=== PATIENT | female | born 1990 | race Caucasian/White ===

== ENCOUNTER 2025-06-18 09:28 | Emergency (ER) | payer OTHER ==
[~2025-06-18] VITALS: Ht 162.6 cm; Wt 100.0 kg
[2025-06-18 09:31] VITALS: TEMP 97.1
[2025-06-18] MEDS ORDERED: MULTTAB20 PO (09:35)
[2025-06-18 10:58] VITALS: O2SAT 99
[2025-06-18 11:04] VITALS: BP 116/58
[2025-06-18 11:14] LABS: BASO # 0.0 10^3/uL (0.0-0.2); BASO % 0.3 % (0.0-1.0); EOS # 0.1 10^3/uL (0.0-0.5); EOS % 0.7 % (0.0-3.0); LYMPH # 1.6 10^3/uL (1.5-5.0); LYMPH % 15.5 % (24.0-44.0); MONO # 0.6 10^3/uL (0.0-0.8); MONO % 5.8 % (2.0-8.0); NEUTROPHILS # 7.9 10^3/uL (1.5-8.5); NEUTROPHILS % 76.4 % (36.0-66.0); PLATELET COUNT, AUTOMATED 253 10^3/uL (150-450)
[2025-06-18 11:36] LABS: INR 0.9
[2025-06-18 11:42] LABS: ALT/SGPT 12 U/L (7.0-40); AST/SGOT 15 U/L (<34)
[2025-06-18 11:43] LABS: CALCIUM LEVEL 8.6 MG/DL (8.5-10.1); CARBON DIOXIDE LEVEL 24 MMOL/L (20-31); CHLORIDE LEVEL 105 MMOL/L (98-107); CREATININE FOR GFR 0.48 MG/DL (0.55-1.30); GLOMERULAR FILTRATION RATE > 90.0 (>60); POTASSIUM SERUM 3.8 MMOL/L (3.5-5.1); SODIUM LEVEL 139 MMOL/L (136-145)
== END 2025-06-18 11:05 | disposition admitted as inpatient to this hospital (09) ==
LOC: M ED 10:32
DX: Z53.21 Procedure and treatment not carried out due to patient leaving prior to being seen by health care provider (principal)

== ENCOUNTER 2025-06-18 11:12 | Outpatient (CLI) | payer OTHER ==
[~2025-06-18] VITALS: Ht 162.6 cm; Wt 100.0 kg
[~2025-06-18 11:12] MED LIST: MULTTAB20 PO
[2025-06-18 13:53] LABS: HIV 1&2 SCREEN NEGATIVE (NEGATIVE)
[2025-06-18 14:01] LABS: HEPATITIS C VIRUS ABY INDEX < 0.02 INDEX (<0.8)
== END 2025-06-18 13:40 | disposition home or self-care (01) ==
LOC: M LDO 11:12
PROVIDERS: ATTEND Obstetrics & Gynecology
DX: O26.892 Other specified pregnancy related conditions, second trimester (principal); O09.522 Supervision of elderly multigravida, second trimester; O09.32 Supervision of pregnancy with insufficient antenatal care, second trimester; R10.20 Pelvic and perineal pain unspecified side; Z3A.23 23 weeks gestation of pregnancy
CPT/HCPCS: 36415; 59025; 76811; 80048; 80076; 85025; 85384; 85460; 85610; 85730; 86762; 86780; 86803; 86850; 86900; 86901; 87340; 87389; 99284; G0463